=== PATIENT | male | born 1930 | race Two or more races ===

== ENCOUNTER 2021-03-19 14:03 | Inpatient (IN) | payer MEDICARE, OTHER ==
[~2021-03-19] VITALS: Ht 162.6 cm; Wt 50.5 kg
[2021-03-19] MEDS ORDERED: SODIUM CHLORIDE 0.9% 500 ML IV ONE (15:30)
[2021-03-19 16:02] LABS: Hematocrit 35.9 % (41.0-53.0); Hemoglobin 12.6 g/dL (13.5-17.5); Mean Corpuscular Hemoglobin 33.4 pg (28.0-32.0); Mean Corpuscular Hgb Conc. 35.2 g/dL (32.0-36.0); Mean Corpuscular Volume 94.8 fL (80.0-100.0); Red Blood Cells 3.78 10^6/uL (4.5-5.90); Red Cell Distribution Width 12.8 % (11.8-14.3); White Blood Cell 13.8 10^3/uL (4.4-10.8)
[2021-03-19 16:27] LABS: Albumin 2.6 g/dL (3.4-5.0); Anion Gap 7 (5-15); Blood Urea Nitrogen 53 mg/dL (7-18); Calcium 8.2 mg/dL (8.5-10.1); Carbon Dioxide 28 mmol/L (21-32); Chloride 104 mmol/L (98-107); Glucose 239 mg/dL (74-106); Magnesium 2.1 mg/dL (1.6-2.6); Sodium 139 mmol/L (136-145)
[2021-03-19 16:28] LABS: Basophils % (manual) 0 (0.0-2.0); Blast Cells 0; Eosinophils % (manual) 0 (0-7); Myelocytes % 0; Promyelocytes % 0; Reactive Lymphocytes 0
[2021-03-19 16:30] LABS: Lactic Acid w/Reflex 2.2 mmol/L (0.4-2.0)
[2021-03-19 16:35] LABS: Alanine Aminotransferase 36 U/L (16-61); Alkaline Phosphatase 70 U/L (45-117); Aspartate Aminotransferase 43 U/L (15-37); BUN/Creatinine Ratio 34.6; Bilirubin, Total 1.6 mg/dL (0.2-1.0); CRP High Sensitivity > 19.0 mg/dL (< 0.3); GFR African American 56 mL/min; GFR Non-African American 46 mL/min; Total Protein 6.3 g/dL (6.4-8.2)
[2021-03-19 16:37] LABS: Potassium 2.8 mmol/L (3.5-5.1)
[2021-03-19 16:46] LABS: Band Neutrophils % (manual) 19; Lymphocytes % (manual) 2 (10.0-50.0); Metamyelocytes % 2; Monocytes % (manual) 8 (0-12)
[2021-03-19] MEDS ORDERED: LACTATED RINGER'S 1,000 ML IV ONE (17:15)
[2021-03-19] MEDS ORDERED: ATEN25TA PO (17:21)
[2021-03-19] MEDS ORDERED: FURO20TA3 PO (17:21)
[2021-03-19] MEDS ORDERED: CHLO50TA PO (17:21)
[2021-03-19] MEDS ORDERED: TAMS0.4C36 PO (17:21)
[2021-03-19] MEDS ORDERED: NIFE1TAB30 PO (17:21)
[2021-03-19] MEDS ORDERED: MULT-928 PO (17:22)
[2021-03-19] MEDS ORDERED: NITROGLYCERIN 0.4 MG SL TAB SL PRN ×2 (17:30)
[2021-03-19] MEDS ORDERED: LORazepam 0.5 MG TAB PO PRN (17:30)
[2021-03-19] MEDS ORDERED: MORPHINE SULFATE INJECTION 2 MG/ML SYRG IV PRN ×3 (17:30)
[2021-03-19] MEDS ORDERED: MAGNESIUM SULFATE 1GM/100ML 100 ML IV ONE (17:30)
[2021-03-19] MEDS ORDERED: HYDROcodone-ACET 5/325MG TAB PO PRN (17:30)
[2021-03-19] MEDS ORDERED: DOBUTamine 1000MCG/ML 250 ML IV SCH ×2 (17:30→18:45)
[2021-03-19] MEDS ORDERED: ACETAMINOPHEN 325 MG TAB PO PRN (17:30)
[2021-03-19] MEDS ORDERED: ALUM & MAG HYDROX-SIMETH LIQ(MAALOX) 30 ML PO PRN (17:30)
[2021-03-19] MEDS ORDERED: DOCUSATE SOD 100 MG CAP PO PRN (17:30)
[2021-03-19] MEDS ORDERED: ONDANSETRON HCL 4 MG/2 ML VIAL IV PRN (17:30)
[2021-03-19] MEDS ORDERED: cefTRIAXone 1GM/50ML D5W 50 ML IV ONE ×2 (17:45→18:45)
[2021-03-19] MEDS: FUROSEMIDE 20 MG/2 ML VIAL IV SCH (18:00)
[2021-03-19] MEDS ORDERED: ACETAMINOPHEN 500 MG TAB PO PRN (18:00)
[2021-03-19] MEDS ORDERED: DEXTROSE (50%) 50ML SYRG IV PRN (18:00)
[2021-03-19] MEDS: SODIUM CHLORIDE 0.9% 1,000 ML IV SCH (18:16)
[2021-03-19 18:29] LABS: Phosphorus 1.3 mg/dL (2.5-4.90)
[2021-03-19] MEDS: TAMSULOSIN HYDROCHLORIDE 0.4 MG CAP PO SCH (18:33)
[2021-03-19] MEDS: POTASSIUM CHL 20MEQ/100ML 100 ML IV SCH ×3 (18:33→23:09)
[2021-03-19] MEDS: NOREPINEPHRINE 8 MG/250ML KIT 250 ML IV SCH (21:25)
[2021-03-19] MEDS: ACCU-CHEK COMFORT CURVE STRIP VI SCH (22:00)
[2021-03-19] MEDS: BUDESONIDE (INHALATION) 180 MCG IH IN SCH (22:00)
[2021-03-19] MEDS ORDERED: DOXYCYCLINE 100MG/250ML 250 ML IV SCH (22:00)
[2021-03-19] MEDS: InsuLIN REG 1unit/0.01ml Soln (100units/ml) SC SCH (22:53)
[2021-03-19] MEDS: ENOXAPARIN SOD 40 MG/0.4 ML SYRINGE SC SCH (22:54)
[2021-03-19] MEDS: FAMOTIDINE (10MG/ML) 2ML VL IV SCH (22:57)
[2021-03-19] MEDS: ATORVASTATIN 20 MG TAB PO SCH (23:55)
[2021-03-20] MEDS: POTASSIUM CHL 20MEQ/100ML 100 ML IV SCH ×3 (00:47→12:22)
[2021-03-20] MEDS: NOREPINEPHRINE 8 MG/250ML KIT 250 ML IV SCH (03:51)
[2021-03-20] MEDS: FUROSEMIDE 20 MG/2 ML VIAL IV SCH ×2 (06:10→18:07)
[2021-03-20 06:26] LABS: Basophils # (auto) 0 10 ^3/uL (0-0.2); Basophils % (auto) 0.1 % (0.0-2.0); Eosinophils # (auto) 0 10 ^3/uL (0-0.8); Eosinophils % (auto) 0.1 % (0.0-7.0); Hematocrit 35.6 % (41.0-53.0); Hemoglobin 12.7 g/dL (13.5-17.5); Lymphocytes # (auto) 0.7 10 ^3/uL (0.4-5.4); Lymphocytes % (auto) 4.7 % (10.0-50.0); Mean Corpuscular Hemoglobin 33.7 pg (28.0-32.0); Mean Corpuscular Hgb Conc. 35.6 g/dL (32.0-36.0); Mean Corpuscular Volume 94.6 fL (80.0-100.0); Monocytes % (auto) 6.7 % (0.0-12.0); Neutrophils # (auto) 12.9 10 ^3/uL (1.6-8.6); Neutrophils % (auto) 88.4 % (37.0-80.0); Red Blood Cells 3.77 10^6/uL (4.5-5.90); Red Cell Distribution Width 12.9 % (11.8-14.3); White Blood Cell 14.6 10^3/uL (4.4-10.8)
[2021-03-20 06:36] LABS: INR 1.06 (0.9-1.15); Partial Thromboplastin Time 34.8 sec (23.6-33.0)
[2021-03-20 06:50] LABS: Chloride 105 mmol/L (98-107); Sodium 138 mmol/L (136-145)
[2021-03-20] MEDS: SODIUM CHLORIDE 0.9% 1,000 ML IV SCH ×3 (06:50→23:21)
[2021-03-20 07:08] LABS: Alanine Aminotransferase 40 U/L (16-61); Albumin 2.5 g/dL (3.4-5.0); Alkaline Phosphatase 89 U/L (45-117); Anion Gap 7 (5-15); Aspartate Aminotransferase 42 U/L (15-37); BUN/Creatinine Ratio 40.8; Bilirubin, Total 1.3 mg/dL (0.2-1.0); Blood Urea Nitrogen 42 mg/dL (7-18); Carbon Dioxide 26 mmol/L (21-32); GFR African American 88 mL/min; GFR Non-African American 72 mL/min; Glucose 169 mg/dL (74-106); Magnesium 2.2 mg/dL (1.6-2.6); Phosphorus 1.3 mg/dL (2.5-4.90); Total Protein 6.3 g/dL (6.4-8.2); Uric Acid 8.5 mg/dL (3.5-7.2)
[2021-03-20] MEDS: ACCU-CHEK COMFORT CURVE STRIP VI SCH ×4 (07:48→21:42)
[2021-03-20] MEDS: InsuLIN REG 1unit/0.01ml Soln (100units/ml) SC SCH ×5 (07:53→21:55)
[2021-03-20] MEDS ORDERED: LORazepam 2MG/ML-1ML VIAL IV PRN (08:30)
[2021-03-20 09:55] LABS: Urine Bacteria NONE SEEN /hpf (None Seen); Urine Blood 3+ /uL (Negative); Urine Specific Gravity 1.008 (1.001-1.035); Urine WBC 1 /hpf (0 - 3)
[2021-03-20] MEDS ORDERED: VANCOMYCIN PER PHARMACY 0 MG IV SCH (10:00)
[2021-03-20] MEDS: BUDESONIDE (INHALATION) 180 MCG IH IN SCH ×2 (10:00→22:00)
[2021-03-20] MEDS: LISINOPRIL 5 MG TAB PO SCH (10:00)
[2021-03-20] MEDS ORDERED: NEUTRA-PHOS TABLET PO ONE (10:00)
[2021-03-20] MEDS: CHOLECALCIFEROL (VITD3) 2,000 UNIT CAP/TAB PO SCH (10:00)
[2021-03-20] MEDS: ZINC SULFATE 220mg CAP or TAB PO SCH (10:00)
[2021-03-20] MEDS ORDERED: PIPERACILLIN-TAZOB 3.375GM 100 ML IV ONE (10:00)
[2021-03-20] MEDS: ASCORBIC ACID 1,000 MG TAB PO SCH (10:00)
[2021-03-20] MEDS: ASPirin 81 mg TAB PO SCH (10:00)
[2021-03-20] MEDS: DexAMETHasone SOD PHOS 10MG/1ML VIAL INJ IV SCH (10:06)
[2021-03-20] MEDS: ENOXAPARIN SOD 40 MG/0.4 ML SYRINGE SC SCH (10:07)
[2021-03-20 10:15] LABS: Amphetamine Screen, Urine NEGATIVE (NEGATIVE); Barbiturate Scree,Urine NEGATIVE (NEGATIVE); Benzodiazephine Screen, Urine NEGATIVE (NEGATIVE); Cannabinoid Screen, Urine NEGATIVE (NEGATIVE); Cocaine Screen, Urine NEGATIVE (NEGATIVE); Opiate Scree,Urine NEGATIVE (NEGATIVE); Phencyclidine Screen, Urine NEGATIVE (NEGATIVE)
[2021-03-20] MEDS ORDERED: HALOPERIDOL LACTATE 5 MG/ML INJ VIAL IM PRN (10:45)
[2021-03-20] MEDS ORDERED: IOHEXOL 350 MG/ML 100ML IJ ONE (11:41)
[2021-03-20] MEDS ORDERED: POTASSIUM PHOSPHATE 44 MEQ in D5W 5% 250 ML IV ONE (14:00)
[2021-03-20 14:17] LABS: Basophils # (auto) 0 10 ^3/uL (0-0.2); Eosinophils # (auto) 0 10 ^3/uL (0-0.8); Hematocrit 37.4 % (41.0-53.0); Hemoglobin 13.1 g/dL (13.5-17.5); Lymphocytes # (auto) 0.3 10 ^3/uL (0.4-5.4); Lymphocytes % (auto) 2.6 % (10.0-50.0); Mean Corpuscular Hemoglobin 33.2 pg (28.0-32.0); Monocytes # (auto) 0.4 10 ^3/uL (0-1.3); Monocytes % (auto) 3.2 % (0.0-12.0); Neutrophils # (auto) 11.5 10 ^3/uL (1.6-8.6); Neutrophils % (auto) 94.2 % (37.0-80.0); Red Blood Cells 3.93 10^6/uL (4.5-5.90); Red Cell Distribution Width 12.9 % (11.8-14.3); White Blood Cell 12.2 10^3/uL (4.4-10.8)
[2021-03-20] MEDS: VANCOMYCIN 1GM/250ML 250 ML IV SCH (14:20)
[2021-03-20 14:25] LABS: INR 1.05 (0.9-1.15); Partial Thromboplastin Time 42.4 sec (23.6-33.0)
[2021-03-20 14:41] LABS: Anion Gap 6 (5-15); Blood Urea Nitrogen 34 mg/dL (7-18); Calcium 8.2 mg/dL (8.5-10.1); Carbon Dioxide 27 mmol/L (21-32); Chloride 104 mmol/L (98-107); Glucose 158 mg/dL (74-106); Magnesium 2.2 mg/dL (1.6-2.6); Potassium 3.1 mmol/L (3.5-5.1); Sodium 137 mmol/L (136-145)
[2021-03-20 14:47] LABS: BUN/Creatinine Ratio 44.2; GFR African American 123 mL/min; GFR Non-African American 101 mL/min; Phosphorus 1.7 mg/dL (2.5-4.90)
[2021-03-20] MEDS: PIPERACILLIN-TAZOB 3.375GM 100 ML IV SCH ×2 (16:05→21:32)
[2021-03-20] MEDS: NEUTRA-PHOS TABLET PO SCH (18:00)
[2021-03-20] MEDS: TAMSULOSIN HYDROCHLORIDE 0.4 MG CAP PO SCH (18:00)
[2021-03-20] MEDS ORDERED: cefTRIAXone 1GM/50ML D5W 50 ML IV SCH (21:00)
[2021-03-20] MEDS: FAMOTIDINE (10MG/ML) 2ML VL IV SCH (21:32)
[2021-03-20] MEDS: ATORVASTATIN 20 MG TAB PO SCH ×2 (21:50→22:00)
[2021-03-21] MEDS: LORazepam 2MG/ML-1ML VIAL IV PRN ×2 (01:43→22:18)
[2021-03-21] MEDS: PIPERACILLIN-TAZOB 3.375GM 100 ML IV SCH ×4 (03:33→22:18)
[2021-03-21] MEDS: ACCU-CHEK COMFORT CURVE STRIP VI SCH ×4 (05:59→22:37)
[2021-03-21] MEDS: FUROSEMIDE 20 MG/2 ML VIAL IV SCH ×2 (05:59→18:00)
[2021-03-21] MEDS: InsuLIN REG 1unit/0.01ml Soln (100units/ml) SC SCH ×4 (06:06→22:39)
[2021-03-21 06:51] LABS: Basophils # (auto) 0 10 ^3/uL (0-0.2); Eosinophils # (auto) 0 10 ^3/uL (0-0.8); Monocytes # (auto) 0.6 10 ^3/uL (0-1.3); Monocytes % (auto) 4.5 % (0.0-12.0); Neutrophils # (auto) 11.8 10 ^3/uL (1.6-8.6); White Blood Cell 12.8 10^3/uL (4.4-10.8)
[2021-03-21 06:53] LABS: Basophils % (auto) 0.1 % (0.0-2.0); Eosinophils % (auto) 0.1 % (0.0-7.0); Lymphocytes # (auto) 0.5 10 ^3/uL (0.4-5.4); Lymphocytes % (auto) 3.6 % (10.0-50.0); Neutrophils % (auto) 91.7 % (37.0-80.0); Nucleated Red Blood Cells % 0.1 %
[2021-03-21 06:56] LABS: Hematocrit 38.6 % (41.0-53.0); Hemoglobin 13.8 g/dL (13.5-17.5); Mean Corpuscular Hemoglobin 34.1 pg (28.0-32.0); Mean Corpuscular Hgb Conc. 35.9 g/dL (32.0-36.0); Red Blood Cells 4.06 10^6/uL (4.5-5.90); Red Cell Distribution Width 13.1 % (11.8-14.3)
[2021-03-21 07:08] LABS: INR 1.05 (0.9-1.15); Partial Thromboplastin Time 35.7 sec (23.6-33.0)
[2021-03-21 07:09] LABS: Albumin 2.4 g/dL (3.4-5.0); Anion Gap 10 (5-15); Blood Urea Nitrogen 26 mg/dL (7-18); Carbon Dioxide 26 mmol/L (21-32); Chloride 101 mmol/L (98-107); Glucose 232 mg/dL (74-106); Sodium 137 mmol/L (136-145)
[2021-03-21 07:17] LABS: Alanine Aminotransferase 40 U/L (16-61); Alkaline Phosphatase 83 U/L (45-117); Aspartate Aminotransferase 26 U/L (15-37); BUN/Creatinine Ratio 32.5; Bilirubin, Total 1.2 mg/dL (0.2-1.0); GFR African American 117 mL/min; GFR Non-African American 97 mL/min; Total Protein 6.9 g/dL (6.4-8.2)
[2021-03-21 07:47] LABS: Potassium 2.7 mmol/L (3.5-5.1)
[2021-03-21] MEDS: VANCOMYCIN 1GM/250ML 250 ML IV SCH (08:04)
[2021-03-21] MEDS: NEUTRA-PHOS TABLET PO SCH ×3 (08:09→19:55)
[2021-03-21] MEDS: ZINC SULFATE 220mg CAP or TAB PO SCH (09:53)
[2021-03-21] MEDS: ENOXAPARIN SOD 40 MG/0.4 ML SYRINGE SC SCH (09:53)
[2021-03-21] MEDS: ASCORBIC ACID 1,000 MG TAB PO SCH (09:53)
[2021-03-21] MEDS: ASPirin 81 mg TAB PO SCH (09:53)
[2021-03-21] MEDS: LISINOPRIL 5 MG TAB PO SCH (09:54)
[2021-03-21] MEDS: DexAMETHasone SOD PHOS 10MG/1ML VIAL INJ IV SCH (10:38)
[2021-03-21] MEDS: CHOLECALCIFEROL (VITD3) 2,000 UNIT CAP/TAB PO SCH (10:38)
[2021-03-21] MEDS ORDERED: MAGNESIUM SULFATE 1GM/100ML 100 ML IV ONE (15:45)
[2021-03-21] MEDS: POTASSIUM CHL 20MEQ/100ML 100 ML IV SCH ×3 (16:27→21:05)
[2021-03-21] MEDS: TAMSULOSIN HYDROCHLORIDE 0.4 MG CAP PO SCH (18:15)
[2021-03-21] MEDS: ATORVASTATIN 20 MG TAB PO SCH (22:00)
[2021-03-21] MEDS: SODIUM CHLORIDE 0.9% 1,000 ML IV SCH (22:07)
[2021-03-21] MEDS: NOREPINEPHRINE 8 MG/250ML KIT 250 ML IV SCH (22:07)
[2021-03-21] MEDS: FAMOTIDINE (10MG/ML) 2ML VL IV SCH (22:18)
[2021-03-21] MEDS: BUDESONIDE (INHALATION) 180 MCG IH IN SCH ×2 (23:00→23:30)
[2021-03-22] MEDS: POTASSIUM CHL 20MEQ/100ML 100 ML IV SCH (00:24)
[2021-03-22] MEDS: VANCOMYCIN 1GM/250ML 250 ML IV SCH ×2 (02:24→22:00)
[2021-03-22] MEDS: PIPERACILLIN-TAZOB 3.375GM 100 ML IV SCH ×4 (04:11→23:10)
[2021-03-22 05:52] LABS: Basophils # (auto) 0 10 ^3/uL (0-0.2); Basophils % (auto) 0.1 % (0.0-2.0); Eosinophils # (auto) 0 10 ^3/uL (0-0.8); Hematocrit 36.1 % (41.0-53.0); Hemoglobin 12.6 g/dL (13.5-17.5); Lymphocytes # (auto) 0.4 10 ^3/uL (0.4-5.4); Lymphocytes % (auto) 4.3 % (10.0-50.0); Mean Corpuscular Hemoglobin 33.5 pg (28.0-32.0); Mean Corpuscular Volume 95.9 fL (80.0-100.0); Monocytes # (auto) 0.6 10 ^3/uL (0-1.3); Monocytes % (auto) 5.9 % (0.0-12.0); Neutrophils # (auto) 8.7 10 ^3/uL (1.6-8.6); Neutrophils % (auto) 89.7 % (37.0-80.0); Nucleated Red Blood Cells % 0.1 %; Red Blood Cells 3.77 10^6/uL (4.5-5.90); Red Cell Distribution Width 12.9 % (11.8-14.3); White Blood Cell 9.7 10^3/uL (4.4-10.8)
[2021-03-22 06:00] LABS: INR 1.09 (0.9-1.15); Partial Thromboplastin Time 34.4 sec (23.6-33.0)
[2021-03-22 06:01] LABS: Potassium 3.1 mmol/L (3.5-5.1)
[2021-03-22] MEDS: FUROSEMIDE 20 MG/2 ML VIAL IV SCH ×2 (06:08→23:10)
[2021-03-22 06:19] LABS: BUN/Creatinine Ratio 30.1; Bilirubin, Total 0.9 mg/dL (0.2-1.0); Calcium 7.6 mg/dL (8.5-10.1); Magnesium 2.3 mg/dL (1.6-2.6); Phosphorus 2.5 mg/dL (2.5-4.90); Total Protein 5.9 g/dL (6.4-8.2)
[2021-03-22] MEDS: ACCU-CHEK COMFORT CURVE STRIP VI SCH ×3 (07:07→20:36)
[2021-03-22] MEDS: InsuLIN REG 1unit/0.01ml Soln (100units/ml) SC SCH ×3 (07:23→20:35)
[2021-03-22] MEDS: NEUTRA-PHOS TABLET PO SCH ×4 (08:00→20:35)
[2021-03-22] MEDS: ZINC SULFATE 220mg CAP or TAB PO SCH (10:00)
[2021-03-22] MEDS: LISINOPRIL 5 MG TAB PO SCH (10:00)
[2021-03-22] MEDS: ASCORBIC ACID 1,000 MG TAB PO SCH (10:00)
[2021-03-22] MEDS: CHOLECALCIFEROL (VITD3) 2,000 UNIT CAP/TAB PO SCH (10:00)
[2021-03-22] MEDS: ASPirin 81 mg TAB PO SCH (10:00)
[2021-03-22] MEDS: ENOXAPARIN SOD 40 MG/0.4 ML SYRINGE SC SCH (11:08)
[2021-03-22] MEDS: DexAMETHasone SOD PHOS 10MG/1ML VIAL INJ IV SCH (11:08)
[2021-03-22] MEDS: SODIUM CHLORIDE 0.9% 1,000 ML IV SCH (19:30)
[2021-03-22] MEDS: TAMSULOSIN HYDROCHLORIDE 0.4 MG CAP PO SCH (20:34)
[2021-03-22] MEDS: BUDESONIDE (INHALATION) 180 MCG IH IN SCH (21:07)
[2021-03-22] MEDS ORDERED: POTASSIUM CHL 20 Meq TABLET PO ONE (21:30)
[2021-03-22] MEDS ORDERED: POTASSIUM CHL 20MEQ/100ML 100 ML IV ONE (22:00)
[2021-03-22 22:20] VITALS: BP 138/88
[2021-03-22] MEDS: ATORVASTATIN 20 MG TAB PO SCH (23:00)
[2021-03-22] MEDS: FAMOTIDINE (10MG/ML) 2ML VL IV SCH (23:10)
[2021-03-23] MEDS: InsuLIN REG 1unit/0.01ml Soln (100units/ml) SC SCH ×5 (00:21→22:12)
[2021-03-23] MEDS: ACCU-CHEK COMFORT CURVE STRIP VI SCH ×5 (00:21→22:02)
[2021-03-23] MEDS: PIPERACILLIN-TAZOB 3.375GM 100 ML IV SCH (03:33)
[2021-03-23] MEDS: SODIUM CHLORIDE 0.9% 1,000 ML IV SCH ×2 (05:50→20:59)
[2021-03-23 06:05] LABS: Basophils # (auto) 0 10 ^3/uL (0-0.2); Basophils % (auto) 0.1 % (0.0-2.0); Eosinophils # (auto) 0 10 ^3/uL (0-0.8); Eosinophils % (auto) 0.1 % (0.0-7.0); Hematocrit 41.2 % (41.0-53.0); Hemoglobin 14.9 g/dL (13.5-17.5); Lymphocytes # (auto) 1.1 10 ^3/uL (0.4-5.4); Mean Corpuscular Hgb Conc. 36.1 g/dL (32.0-36.0); Monocytes # (auto) 0.6 10 ^3/uL (0-1.3); Red Cell Distribution Width 12.9 % (11.8-14.3)
[2021-03-23 06:06] VITALS: BP 130/80
[2021-03-23 06:09] LABS: Lymphocytes % (auto) 11.6 % (10.0-50.0); Mean Corpuscular Hemoglobin 34.7 pg (28.0-32.0); Mean Corpuscular Volume 96.2 fL (80.0-100.0); Monocytes % (auto) 6.4 % (0.0-12.0); Neutrophils % (auto) 81.8 % (37.0-80.0); Nucleated Red Blood Cells % 0.1 %; Red Blood Cells 4.28 10^6/uL (4.5-5.90); White Blood Cell 9.8 10^3/uL (4.4-10.8)
[2021-03-23 06:15] LABS: INR 1.16 (0.9-1.15); Partial Thromboplastin Time 29.6 sec (23.6-33.0)
[2021-03-23 06:21] LABS: Chloride 99 mmol/L (98-107); Sodium 140 mmol/L (136-145)
[2021-03-23] MEDS: FUROSEMIDE 20 MG/2 ML VIAL IV SCH ×2 (06:25→18:04)
[2021-03-23 06:26] LABS: Albumin 2.3 g/dL (3.4-5.0); Anion Gap 8 (5-15); BUN/Creatinine Ratio 30.5; Blood Urea Nitrogen 29 mg/dL (7-18); Calcium 8.6 mg/dL (8.5-10.1); Carbon Dioxide 33 mmol/L (21-32); GFR African American 96 mL/min; GFR Non-African American 80 mL/min; Glucose 121 mg/dL (74-106); Magnesium 2.1 mg/dL (1.6-2.6)
[2021-03-23 06:32] LABS: Alanine Aminotransferase 39 U/L (16-61); Alkaline Phosphatase 78 U/L (45-117); Aspartate Aminotransferase 21 U/L (15-37); Bilirubin, Total 1.3 mg/dL (0.2-1.0); Phosphorus 2.1 mg/dL (2.5-4.90); Total Protein 6.7 g/dL (6.4-8.2)
[2021-03-23] MEDS: LORazepam 2MG/ML-1ML VIAL IV PRN (06:43)
[2021-03-23 07:49] VITALS: BP 113/54
[2021-03-23] MEDS: POTASSIUM CHL 20MEQ/100ML 100 ML IV SCH ×2 (09:00→12:16)
[2021-03-23] MEDS ORDERED: cefTRIAXone 1GM/50ML D5W 50 ML IV ONE (11:45)
[2021-03-23] MEDS: NEUTRA-PHOS TABLET PO SCH ×3 (12:00→18:04)
[2021-03-23 12:11] VITALS: BP 114/62
[2021-03-23] MEDS: POTASSIUM CHL 20 Meq TABLET PO SCH (12:16)
[2021-03-23] MEDS: ASPirin 81 mg TAB PO SCH (12:16)
[2021-03-23] MEDS: ENOXAPARIN SOD 40 MG/0.4 ML SYRINGE SC SCH (12:17)
[2021-03-23] MEDS: LISINOPRIL 5 MG TAB PO SCH (12:17)
[2021-03-23 15:55] VITALS: BP 128/81
[2021-03-23] MEDS: TAMSULOSIN HYDROCHLORIDE 0.4 MG CAP PO SCH (18:04)
[2021-03-23 21:30] VITALS: BP 139/89
[2021-03-23] MEDS: ATORVASTATIN 20 MG TAB PO SCH ×2 (22:00→22:01)
[2021-03-23] MEDS: FAMOTIDINE (10MG/ML) 2ML VL IV SCH (22:01)
[2021-03-24 05:00] VITALS: BP 119/75
[2021-03-24] MEDS: InsuLIN REG 1unit/0.01ml Soln (100units/ml) SC SCH ×4 (05:51→21:52)
[2021-03-24] MEDS: ACCU-CHEK COMFORT CURVE STRIP VI SCH ×4 (05:51→21:51)
[2021-03-24] MEDS: FUROSEMIDE 20 MG/2 ML VIAL IV SCH ×2 (05:56→18:03)
[2021-03-24] MEDS: NEUTRA-PHOS TABLET PO SCH ×3 (08:00→18:00)
[2021-03-24 09:00] VITALS: BP 159/94
[2021-03-24] MEDS: cefTRIAXone 1GM/50ML D5W 50 ML IV SCH (09:50)
[2021-03-24] MEDS: POTASSIUM CHL 20 Meq TABLET PO SCH (10:00)
[2021-03-24] MEDS: LISINOPRIL 5 MG TAB PO SCH (10:00)
[2021-03-24] MEDS: ASPirin 81 mg TAB PO SCH (10:00)
[2021-03-24] MEDS: ENOXAPARIN SOD 40 MG/0.4 ML SYRINGE SC SCH (10:00)
[2021-03-24 13:00] VITALS: BP 131/76
[2021-03-24] MEDS: SODIUM CHLORIDE 0.9% 1,000 ML IV SCH (15:10)
[2021-03-24 17:00] VITALS: BP 165/88
[2021-03-24] MEDS: TAMSULOSIN HYDROCHLORIDE 0.4 MG CAP PO SCH (18:00)
[2021-03-24 21:09] LABS: Albumin 2.4 g/dL (3.4-5.0); BUN/Creatinine Ratio 34.3; Calcium 8.4 mg/dL (8.5-10.1)
[2021-03-24 21:12] LABS: Total Protein 6.6 g/dL (6.4-8.2)
[2021-03-24 21:21] LABS: Potassium 2.7 mmol/L (3.5-5.1)
[2021-03-24 21:40] VITALS: BP 138/71
[2021-03-24] MEDS: ATORVASTATIN 20 MG TAB PO SCH (21:51)
[2021-03-24] MEDS: FAMOTIDINE (10MG/ML) 2ML VL IV SCH (21:51)
[2021-03-24] MEDS: POTASSIUM CHL 20MEQ/100ML 100 ML IV SCH (23:16)
[2021-03-25] MEDS: POTASSIUM CHL 20MEQ/100ML 100 ML IV SCH ×4 (02:21→14:15)
[2021-03-25 05:00] VITALS: BP 134/78
[2021-03-25 05:25] LABS: Basophils # (auto) 0 10 ^3/uL (0-0.2); Basophils % (auto) 0.1 % (0.0-2.0); Eosinophils # (auto) 0 10 ^3/uL (0-0.8); Eosinophils % (auto) 0.3 % (0.0-7.0); Hematocrit 37.1 % (41.0-53.0); Hemoglobin 13.2 g/dL (13.5-17.5); Lymphocytes # (auto) 0.5 10 ^3/uL (0.4-5.4); Lymphocytes % (auto) 5.2 % (10.0-50.0); Mean Corpuscular Hgb Conc. 35.7 g/dL (32.0-36.0); Mean Corpuscular Volume 95.3 fL (80.0-100.0); Monocytes # (auto) 0.6 10 ^3/uL (0-1.3); Neutrophils # (auto) 9.2 10 ^3/uL (1.6-8.6); Neutrophils % (auto) 88.4 % (37.0-80.0); Nucleated Red Blood Cells % 0.1 %; Red Blood Cells 3.89 10^6/uL (4.5-5.90); Red Cell Distribution Width 12.8 % (11.8-14.3); White Blood Cell 10.4 10^3/uL (4.4-10.8)
[2021-03-25 05:53] LABS: BUN/Creatinine Ratio 37.6; Calcium 7.9 mg/dL (8.5-10.1)
[2021-03-25] MEDS: FUROSEMIDE 20 MG/2 ML VIAL IV SCH ×2 (06:15→18:00)
[2021-03-25] MEDS: ACCU-CHEK COMFORT CURVE STRIP VI SCH ×4 (06:15→22:30)
[2021-03-25] MEDS: InsuLIN REG 1unit/0.01ml Soln (100units/ml) SC SCH ×4 (06:15→22:30)
[2021-03-25] MEDS: NEUTRA-PHOS TABLET PO SCH ×3 (08:00→18:00)
[2021-03-25 09:00] VITALS: BP 94/48
[2021-03-25] MEDS: cefTRIAXone 1GM/50ML D5W 50 ML IV SCH (09:00)
[2021-03-25] MEDS: LISINOPRIL 5 MG TAB PO SCH (10:00)
[2021-03-25] MEDS: ASPirin 81 mg TAB PO SCH (10:00)
[2021-03-25] MEDS: POTASSIUM CHL 20 Meq TABLET PO SCH (10:00)
[2021-03-25] MEDS: ENOXAPARIN SOD 40 MG/0.4 ML SYRINGE SC SCH (10:00)
[2021-03-25] MEDS: D5W 5% 1,000 ML IV SCH (10:15)
[2021-03-25 13:00] VITALS: BP 144/89
[2021-03-25 17:00] VITALS: BP 141/80
[2021-03-25] MEDS: TAMSULOSIN HYDROCHLORIDE 0.4 MG CAP PO SCH (18:00)
[2021-03-25 20:14] LABS: Albumin 2.4 g/dL (3.4-5.0); Calcium 8.3 mg/dL (8.5-10.1); Potassium 3.3 mmol/L (3.5-5.1)
[2021-03-25 20:17] LABS: BUN/Creatinine Ratio 28.3; Bilirubin, Total 1.1 mg/dL (0.2-1.0); Total Protein 6.6 g/dL (6.4-8.2)
[2021-03-25 22:00] VITALS: BP 103/63
[2021-03-25] MEDS: ATORVASTATIN 20 MG TAB PO SCH (22:00)
[2021-03-26] MEDS: D5W 5% 1,000 ML IV SCH ×2 (01:40→12:55)
[2021-03-26] MEDS: LORazepam 2MG/ML-1ML VIAL IV PRN (01:40)
[2021-03-26 05:00] VITALS: BP 131/86
[2021-03-26] MEDS: FUROSEMIDE 20 MG/2 ML VIAL IV SCH ×2 (06:10→18:00)
[2021-03-26 06:54] LABS: BUN/Creatinine Ratio 32.1; Calcium 8.4 mg/dL (8.5-10.1)
[2021-03-26] MEDS: ACCU-CHEK COMFORT CURVE STRIP VI SCH ×4 (06:56→22:19)
[2021-03-26] MEDS: InsuLIN REG 1unit/0.01ml Soln (100units/ml) SC SCH ×4 (06:59→22:18)
[2021-03-26 07:50] LABS: Basophils # (auto) 0 10 ^3/uL (0-0.2); Eosinophils # (auto) 0.1 10 ^3/uL (0-0.8); Eosinophils % (auto) 0.8 % (0.0-7.0); Hematocrit 37.9 % (41.0-53.0); Lymphocytes # (auto) 0.8 10 ^3/uL (0.4-5.4); Nucleated Red Blood Cells % 0.2 %
[2021-03-26 07:53] LABS: Basophils % (auto) 0.4 % (0.0-2.0); Hemoglobin 13.5 g/dL (13.5-17.5); Lymphocytes % (auto) 7.3 % (10.0-50.0); Mean Corpuscular Hemoglobin 34.5 pg (28.0-32.0); Mean Corpuscular Hgb Conc. 35.7 g/dL (32.0-36.0); Mean Corpuscular Volume 96.6 fL (80.0-100.0); Monocytes # (auto) 0.6 10 ^3/uL (0-1.3); Monocytes % (auto) 5.7 % (0.0-12.0); Neutrophils # (auto) 9.3 10 ^3/uL (1.6-8.6); Neutrophils % (auto) 85.8 % (37.0-80.0); Red Blood Cells 3.92 10^6/uL (4.5-5.90); White Blood Cell 10.9 10^3/uL (4.4-10.8)
[2021-03-26] MEDS: NEUTRA-PHOS TABLET PO SCH ×3 (08:00→18:00)
[2021-03-26 08:30] LABS: Potassium 2.8 mmol/L (3.5-5.1)
[2021-03-26 08:50] VITALS: BP 127/86
[2021-03-26] MEDS: POTASSIUM CHL 20 Meq TABLET PO SCH (10:00)
[2021-03-26] MEDS: ASPirin 81 mg TAB PO SCH (10:00)
[2021-03-26] MEDS: LISINOPRIL 5 MG TAB PO SCH (10:00)
[2021-03-26] MEDS: cefTRIAXone 1GM/50ML D5W 50 ML IV SCH (10:17)
[2021-03-26] MEDS: ENOXAPARIN SOD 40 MG/0.4 ML SYRINGE SC SCH (10:18)
[2021-03-26] MEDS: POTASSIUM CHL 20MEQ/100ML 100 ML IV SCH ×3 (10:49→17:00)
[2021-03-26 13:00] VITALS: BP 136/59
[2021-03-26 16:38] VITALS: BP 129/78
[2021-03-26] MEDS: TAMSULOSIN HYDROCHLORIDE 0.4 MG CAP PO SCH (18:00)
[2021-03-26 20:31] LABS: Albumin 2.3 g/dL (3.4-5.0); Calcium 8.3 mg/dL (8.5-10.1); Potassium 3.7 mmol/L (3.5-5.1)
[2021-03-26 20:34] LABS: BUN/Creatinine Ratio 28.7
[2021-03-26 20:37] LABS: Bilirubin, Total 1.4 mg/dL (0.2-1.0); Total Protein 6.7 g/dL (6.4-8.2)
[2021-03-26 21:00] VITALS: BP 97/62
[2021-03-26] MEDS: ATORVASTATIN 20 MG TAB PO SCH (22:00)
[2021-03-27] MEDS: D5W 5% 1,000 ML IV SCH ×2 (02:15→18:06)
[2021-03-27] MEDS: LORazepam 2MG/ML-1ML VIAL IV PRN (04:10)
[2021-03-27 05:00] VITALS: BP 97/70
[2021-03-27] MEDS: FUROSEMIDE 20 MG/2 ML VIAL IV SCH ×2 (06:00→18:33)
[2021-03-27] MEDS: InsuLIN REG 1unit/0.01ml Soln (100units/ml) SC SCH ×3 (06:56→18:07)
[2021-03-27] MEDS: ACCU-CHEK COMFORT CURVE STRIP VI SCH ×3 (06:57→18:07)
[2021-03-27] MEDS: NEUTRA-PHOS TABLET PO SCH ×3 (08:00→18:00)
[2021-03-27 09:00] VITALS: BP 130/76
[2021-03-27] MEDS: ASPirin 81 mg TAB PO SCH (10:00)
[2021-03-27] MEDS: POTASSIUM CHL 20 Meq TABLET PO SCH (10:00)
[2021-03-27] MEDS: LISINOPRIL 5 MG TAB PO SCH (10:00)
[2021-03-27] MEDS: cefTRIAXone 1GM/50ML D5W 50 ML IV SCH (11:31)
[2021-03-27] MEDS: ENOXAPARIN SOD 40 MG/0.4 ML SYRINGE SC SCH (11:33)
[2021-03-27 13:00] VITALS: BP 120/67
[2021-03-27 17:00] VITALS: BP 125/82
[2021-03-27] MEDS: TAMSULOSIN HYDROCHLORIDE 0.4 MG CAP PO SCH (18:00)
== END 2021-03-27 20:43 | DRG 871 ==
LOC: ER 14:03 → EDBD 14:03 → TELE 17:23 → TELE-WESTW 03-22 22:20
PROVIDERS: ADMIT Hospitalist; ATTEND Internal Medicine Pulmonary Disease
PROC: 06HY33Z Insertion of Infusion Device into Lower Vein, Percutaneous Approach (ICD-10-PCS; 2021-03-19)
PROC: 05HD33Z Insertion of Infusion Device into Right Cephalic Vein, Percutaneous Approach (ICD-10-PCS; principal; 2021-03-24)
PROC: B54MZZA Ultrasonography of Right Upper Extremity Veins, Guidance (ICD-10-PCS; 2021-03-24)
DX: A41.89 Other specified sepsis (principal); J96.01 Acute respiratory failure with hypoxia; N17.0 Acute kidney failure with tubular necrosis; R65.21 Severe sepsis with septic shock; R57.0 Cardiogenic shock; E43 Unspecified severe protein-calorie malnutrition; N39.0 Urinary tract infection, site not specified; I13.0 Hypertensive heart and chronic kidney disease with heart failure and stage 1 through stage 4 chronic kidney disease, or unspecified chronic kidney disease; J84.9 Interstitial pulmonary disease, unspecified; N13.8 Other obstructive and reflux uropathy; Z68.1 Body mass index [BMI] 19.9 or less, adult; M54.9 Dorsalgia, unspecified; I95.0 Idiopathic hypotension; R79.82 Elevated C-reactive protein (CRP); R00.1 Bradycardia, unspecified; G89.29 Other chronic pain; I25.5 Ischemic cardiomyopathy; E87.6 Hypokalemia; N40.1 Benign prostatic hyperplasia with lower urinary tract symptoms; D64.9 Anemia, unspecified; N18.31 Chronic kidney disease, stage 3a; Z20.822 Contact with and (suspected) exposure to COVID-19; E83.39 Other disorders of phosphorus metabolism; E11.22 Type 2 diabetes mellitus with diabetic chronic kidney disease; E78.5 Hyperlipidemia, unspecified; I50.9 Heart failure, unspecified; M48.061 Spinal stenosis, lumbar region without neurogenic claudication; I25.2 Old myocardial infarction; Z79.899 Other long term (current) drug therapy
CPT/HCPCS: 36415; 36556; 36600; 70450; 71045; 71275; 72131; 80048; 80053; 80202; 80307; 81001; 82306; 82728; 82805; 82962; 83036; 83605; 83615; 83735; 83880; 84100; 84443; 84484; 84550; 85007; 85025; 85027; 85379; 85610; 85730; 86141; 87040; 87077; 87086; 87426; 92610; 93005; 93306; 96361; 96365; 99291; A4565; G0378; J0696; J1100; J1815; J2543; J3480; J3490; J7060